=== PATIENT | female | born 1950 | race Caucasian/White ===

== ENCOUNTER 2017-03-23 12:00 | Emergency (ER) | payer BC ==
[2017-03-23 14:17] VITALS: BP 143/62
--- NOTE | 2017-03-23 14:30 | UC ---
Throat Pain/Nasal Ryan HPI - HPI Summary HPI Summary: Per sales training manager "Pt returns from 03/18/17 visit. Pt had negative strep test. Roof and lining of mouth have red spots that have worsened, now blisters under tongue and inside lips are red. Pt queries if sx are due to thrush." Denies sores or rash on hands or feet. no swollen glands, no fevers. - History of Current Complaint Chief Complaint: UCGI Stated Complaint: SORE THROAT/ORAL COMPLAINT Time Seen by Provider: 03/23/17 14:10 - Allergies/Home Medications Allergies/Adverse Reactions: Allergies Allergy/AdvReac Type Severity Reaction Status Date / Time No Known Allergies Allergy Verified 03/23/17 14:17 PMH/Surg Hx/FS Hx/Imm Hx Previously Healthy: Yes - Surgical History Surgical History: Yes Surgery Procedure, Year, and Place: PARA-THYROID. APPY. HYSTERECTOMY - Family History Known Family History: Positive: Hypertension - Social History Alcohol Use: Occasionally Substance Use Type: None Smoking Status (MU): Never Smoked Tobacco Review of Systems Constitutional: Negative Skin: Negative Eyes: Negative ENT: Other - spots on roof of mouth and lesions under tongue Respiratory: Negative Cardiovascular: Negative Gastrointestinal: Negative Genitourinary: Negative Motor: Negative Neurovascular: Negative Musculoskeletal: Negative Neurological: Negative Psychological: Negative Is Patient Immunocompromised?: No All Other Systems Reviewed And Are Negative: Yes Physical Exam Triage Information Reviewed: Yes Appearance: Well-Appearing, No Pain Distress, Well-Nourished Vital Signs: Initial Vital Signs Temp 97.3 F 03/23/17 14:08 Pulse 64 03/23/17 14:08 Resp 18 03/23/17 14:08 BP 143/62 03/23/17 14:08 Vital Signs Reviewed: Yes Eye Exam: Normal ENT: Positive: Pharynx normal, TMs normal, Other - mucosal colored 2-3 mm elevated lesions. no bleeding. no ulcerations. Negative: Pharyngeal erythema, Nasal congestion, Nasal drainage, Tonsillar swelling, Tonsillar exudate Dental Exam: Normal Neck exam: Normal Neck: Positive: Supple, Nontender, No Lymphadenopathy Respiratory Exam: Normal Respiratory: Positive: Lungs clear, Normal breath sounds, No respiratory distress, No accessory muscle use Cardiovascular Exam: Normal Cardiovascular: Positive: RRR, No Murmur, Pulses Normal Abdomen Description: Positive: Nontender, Soft Neurological Exam: Normal Psychological Exam: Normal Skin Exam: Normal Throat Pain/Nasal Course/Dx - Course Assessment/Plan: She is very agreeable with this paln - Differential Dx/Diagnosis Differential Diagnosis/HQI/PQRI: Laryngitis, Other - Ulcers Provider Diagnoses: Aphthous ulcers Discharge - Discharge Plan Condition: Stable Disposition: HOME Patient Education Materials: Canker Sores (ED) Referrals: Lori Estrella MD [Primary Care Provider] - 4 Days Additional Instructions: This is a self limiting process and should improve over the coming days. You can take tylenol for any discomfort.
== END 2017-03-23 14:47 | disposition home or self-care (01) ==
LOC: UCCORT 12:00
DX: K12.0 Recurrent oral aphthae (principal); Z90.710 Acquired absence of both cervix and uterus; Z90.89 Acquired absence of other organs
CPT/HCPCS: 99211; G0463

== ENCOUNTER 2018-11-03 10:37 | Emergency (ER) | payer MEDICARE, BC ==
[2018-11-03 11:02] VITALS: BP 127/55
--- NOTE | 2018-11-03 11:14 | ED ---
Throat Pain/Nasal Congestion - HPI Summary HPI Summary: 68 yr old female with the complaint of sore throat. Onset of sore throat two days ago and she feels tired. No fever. No runny nose or coughing. No drooling or change in voice. No other complaints. - History of Current Complaint Chief Complaint: UCRespiratory Time Seen by Provider: 11/03/18 11:05 - Allergies/Home Medications Allergies/Adverse Reactions: Allergies Allergy/AdvReac Type Severity Reaction Status Date / Time No Known Allergies Allergy Verified 11/03/18 10:54 Home Medications: Home Medications Atorvastatin* [Lipitor*] 10 mg PO DAILY 11/03/18 [History Confirmed 11/03/18] PMH/Surg Hx/FS Hx/Imm Hx - Surgical History Surgery Procedure, Year, and Place: PARA-THYROID. APPY. HYSTERECTOMY. BENIGN SALVALARY GLAND TUMOR REMOVED Infectious Disease History: Yes Infectious Disease History: Reports: Hx Shingles Denies: Traveled Outside the [place] in Last 30 Days - Family History Known Family History: Positive: Hypertension - Social History Occupation: Retired Lives: With Family Alcohol Use: Occasionally Substance Use Type: Reports: None Smoking Status (MU): Never Smoked Tobacco Review of Systems Constitutional: Negative Positive: Sore Throat All Other Systems Reviewed And Are Negative: Yes Physical Exam Triage Information Reviewed: Yes Vital Signs On Initial Exam: Initial Vitals Temp Pulse Resp BP Pulse Ox 97.5 F 75 16 127/55 97 11/03/18 10:57 11/03/18 10:57 11/03/18 10:57 11/03/18 10:57 11/03/18 10:57 Vital Signs Reviewed: Yes Appearance: Positive: Well-Appearing, No Pain Distress Skin: Positive: Warm, Skin Color Reflects Adequate Perfusion Head/Face: Positive: Normal Head/Face Inspection Eyes: Positive: EOMI, SARITHA ENT: Positive: Pharyngeal erythema, TMs normal. Negative: Nasal congestion, Nasal drainage Neck: Positive: Nontender, No Lymphadenopathy, Other: - scar from parathyroid surgery Respiratory/Lung Sounds: Positive: Clear to Auscultation, Breath Sounds Present Cardiovascular: Positive: RRR. Negative: Murmur Abdomen Description: Negative: Distended Musculoskeletal: Positive: Strength/ROM Intact Neurological: Positive: Sensory/Motor Intact, Alert, Oriented to Person Place, Time, CN Intact II-III, Normal Gait, Speech Normal Psychiatric: Positive: Normal Diagnostics - Vital Signs Vital Signs Temp Pulse Resp BP Pulse Ox 11/03/18 10:57 97.5 F 75 16 127/55 97 - Laboratory Lab Statement: Any lab studies that have been ordered have been reviewed, and results considered in the medical decision making process. EENT Course/Dx - Course Course Of Treatment: 68 yr old with pharyngitis. Strep positive. Rx amox - Diagnoses Provider Diagnoses: Strep pharyngitis Discharge - Sign-Out/Discharge Documenting (check all that apply): Patient Departure All imaging exams completed and their final reports reviewed: No Studies - Discharge Plan Condition: Good Disposition: HOME Prescriptions: Amoxicillin PO (*) [Amoxicillin 500 MG CAP*] 500 mg PO TID #30 cap Patient Education Materials: Strep Throat (ED) Referrals: Lori Estrella MD [Primary Care Provider] - - Billing Disposition and Condition Condition: GOOD Disposition: Home
== END 2018-11-03 11:22 | disposition home or self-care (01) ==
LOC: UCCORT 10:37
DX: J02.0 Streptococcal pharyngitis (principal); B95.0 Streptococcus, group A, as the cause of diseases classified elsewhere
CPT/HCPCS: 87651; 99212; G0463

== ENCOUNTER 2019-02-28 12:18 | Emergency (ER) | payer MEDICARE, BC ==
--- OUTSIDE RECORDS SUMMARY | 2019-02-28 12:28 | XMS REPORT | Continuity of Care Document ---
:1950 External Reference #:[id number] Author Name Lori Estrella MD Address [address] [place] [id number] Care Team Providers Name Role Phone Lori Estrella MD - Family Care Team Information Houseperson [phone] Medicine Wali Weeks MD Care Team Information Houseperson [phone] Connor Medina MD Care Team Information Houseperson [phone] Lane Daniel - Gastroenterology Care Team Information Houseperson Osmany Diaz MD - Otolaryngology Care Team Information Houseperson [facility] X-Ray Care Team Information Houseperson [phone] - Urology Care Team Information Houseperson [phone] Problems Active Problems Provider Date Hormone replacement therapy Lori Estrella MD Onset: 07/09/2012 Benign neoplasm of parathyroid gland Lori Estrella MD Onset: 11/27/2009 Hyperparathyroidism Lori Estrella MD Onset: 11/27/2009 Non-toxic multinodular goiter Lori Estrella MD Onset: 05/29/2009 Osteoporosis Lori Estrella MD Onset: 06/27/2008 Pain in female genitalia on intercourse Lori Estrella MD Onset: 2008 Vitamin D deficiency Lori Estrella MD Onset: 05/04/2007 Mixed hyperlipidemia Lori Estrella MD Onset: 03/13/2006 Osteochondropathy Lori Estrella MD Onset: 03/13/2006 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 Social History Type Date Description Comments Sex Unknown ETOH Use Occasionally consumes alcohol Tobacco Use Start: Unknown Patient has never smoked Smoking Status Reviewed: 08/19/18 Patient has never smoked Exercise Exercises regularly Walks 5 times a week - Type/Frequency 07/12/2013 counselled 150min per week , , 3miles, 45 min.; 08/03/14 counselled 150min per week 10k steps per day Allergies, Adverse Reactions, Alerts Description No Known Drug Allergies Medications Active Medications SIG Qnty Indications Ordering Provider Date Naproxen 1 by mouth 60tabs M70.62 Lori Estrella, 01/29/2019 500mg Tablets twice a day MD with food M70.61 Atorvastatin Calcium 1 by mouth every 100tabs E78.2 Lori Estrella MD 08/19/2018 10mg day Tablets History Medications Amoxicillin Three Times Daily 30caps Unknown 11/03/2018 - 01/28/2019 500mg Capsules Immunizations CPT Code Status Date Vaccine Reaction Lot # [id number] Given 01/26/2018 Fluzone Highdose Age 65 And Over Preservative & Antibiotic Free 02935 Given 08/11/2017 Zoster (Zostavax) [place] 17210 Given 08/11/2017 Pneumococcal 23 Immunization [id number] Adult Or Immunosuppressed Patient 60229 Given 08/11/2017 Tdap (Adacel) Ages 7 And [place] drugs Above Only 44061 Given 08/07/2016 Prevnar 13 Pneumococal Im inj completed, Pt [id number] Conjugate Vaccine tolerated well Q2035 Given 02/13/2016 Afluria Imunization [facility] 80257 Given 02/25/2013 Afluria Or Fluvirin Flu Vac Intramuscular 07832 Given 04/12/2008 Afluria Or Fluvirin Flu Vac Intramuscular 35958 Given 04/12/2008 Tdap (Adacel) Ages 7 And Above Only 50159 Given 04/12/2003 Afluria Or Fluvirin Flu Vac Intramuscular 48641 Given 05/31/1999 Tetanus And Diptheria Toxoids For Adult Use-preservative free 48034 Refused 01/29/2019 Shingrix (Shingles) Zoster Vaccine HZV, Recombinant, Subunit, Adj Q2039 Refused 01/29/2019 Flu Vaccine NOS 78467 Refused 08/11/2017 Zoster (Zostavax) insurance will not cover Q2039 Refused 08/11/2017 Flu Vaccine NOS 98578 Refused 08/07/2015 Zoster (Zostavax) 27275 Refused 08/03/2014 Influenza Virus Vaccine,Quadrivalent,Split,Preser v Free, 0.5mL,[place] [address] Refused 08/03/2014 Zoster (Zostavax) Vital Signs Date Vital Result Comment 01/29/2019 2:46pm Weight 151.00 lb Heart Rate 68 /min BP Systolic 112 mmHg BP Diastolic 70 mmHg Respiratory Rate 18 /min Height 63 inches 5'3" O2 % BldC Oximetry 98 % ra BMI (Body Mass Index) 26.7 kg/m2 10/21/2018 10:49am Weight 149.00 lb Heart Rate 68 /min BP Systolic 118 mmHg BP Diastolic 76 mmHg Respiratory Rate 16 /min Height 63 inches 5'3" BMI (Body Mass Index) 26.4 kg/m2 Results Test Date Facility Test Result H/L Range Note Comprehensive Met Panel[facility] 09/21/2018 [facility] Sodium 143 mmol/L 135- 146 1, 2 Potassium 3.9 mmol/L 3.5-5.2 Chloride# 109 mmol/L 97-110 3 Carbon Dioxide 22 mmol/L Low 24-34 Calcium 9.1 mg/dL 8.5-10.5 4 Glucose 98 mg/dL 70-105 BUN 18 mg/dL 6-26 Creatinine 0.7 mg/dL 0.5-1.4 Total Protein 6.3 g/dL 6.0-8.0 Albumin 4.2 g/dL 3.6-4.9 Globulin 2.1 g/dL 2.0-3.5 A/G Ratio 2.0 Ratio 1.0-2.2 Total Bilirubin 0.6 mg/dL 0.1-1.3 Alkaline Phosphatase 53 U/L 24-140 Alt 14 U/L 3-42 Ast 15 U/L 8-42 Anion Gap 12 mmol/L 5-15 5 Female Egfr 84 >60 6 Male Egfr 95 >60 7 Laboratory test finding 09/21/2018 [facility] CPK 69 U/L 12-199 Lipid 09/21/2018 [facility] Cholesterol 180 mg/dL 50-199 Triglycerides 82 mg/dL 30-200 HDL 63 mg/dL 35-85 8 Chol/ HDL Ratio 2.9 ratio Low 3.7-5.6 VLDL 16 mg/dL 2-29 LDL (Calc) 101 mg/dL High 20-99 9 Lipid 08/18/2018 [facility] Cholesterol 265 mg/dL High 50-199 10 Triglycerides 71 mg/dL 30-200 HDL 65 mg/dL 35-85 11 Chol/ HDL Ratio 4.1 ratio 3.7-5.6 VLDL 14 mg/dL 2-29 LDL (Calc) 186 mg/dL High 20-99 12 Comprehensive Metabolic (CMP) 08/18/2018 [facility] Sodium 141 mmol/L 135- 146 13 Potassium 4.4 mmol/L 3.5-5.2 Chloride# 107 mmol/L 97-110 14 Carbon Dioxide 23 mmol/L Low 24-34 Glucose 90 mg/dL 70-105 BUN 21 mg/dL 6-26 Creatinine 0.7 mg/dL 0.5-1.4 Calcium 9.7 mg/dL 8.5-10.2 Total Protein 6.5 g/dL 6.0-8.0 Albumin 4.3 g/dL 3.6-4.9 Globulin 2.2 g/dL 2.0-3.5 A/G Ratio 2.0 Ratio 1.0-2.2 Total Bilirubin 0.7 mg/dL 0.1-1.3 Alkaline Phosphatase 51 U/L 24-140 Alt 13 U/L 3-42 Ast 17 U/L 8-42 Anion Gap 11 mmol/L 5-15 15 Malia Egfr >60 >60 16 Non Malia Egfr >60 >60 17 CBC With Auto Diff 08/18/2018 [facility] WBC 4.3 K/uL 4.1-11.0 RBC 4.78 M/uL 4.00-5.40 Hemoglobin 14.3 gm/dL 12.0-16.0 Hematocrit 42.1 % 36.0-47.0 MCV 88.1 fL 80.0-97.0 MCH 29.9 pg 27.0-32.0 MCHC 33.9 g/dL 32.0-36.0 RDW 14.0 % 11.5-14.5 PLT Count 174 K/ul 140-400 MPV 10.5 FL 7.1-10.7 Neutrophil 63.5 % 35.0-75.0 Lymphocyte 24.1 % 16.0-52.0 Monocyte 6.8 % 2.0-10.0 Eosinophil 4.2 % 0.0-5.0 Basophil 1.4 % 0.0-4.0 Abs Neutrophils 2.7 K/uL 2.1-8.0 Abs Lymphocytes 1.0 K/uL 0.8-5.5 Abs Monocytes 0.3 K/uL 0.1-1.0 Abs Eosinophils 0.2 K/uL 0.0-0.5 Abs Basophils 0.1 K/uL 0.0-0.3 Laboratory test finding 08/18/2018 [facility] Vitamin D 25 Hydroxy 40 ng/mL 30-100 18 TSH 1.20 uIU/mL 0.35-4.94 Laboratory test finding 08/18/2018 [facility] PTH, Intact 49.1 pg/mL (18.5- 88.0) 19 1 6 weeks ov fu new meds 2 Updated reference range on new analyzer 3 Updated reference range on new analyzer 4 Updated reference range 09-09-2018 5 Updated Reference Range 6 Concerning GFR Guidelines for Americans: Normal function or mild renal disease, if clinically at risk: >/= 60 mL/min Moderately decreased: 30-59 Severely decreased: 15-29 Renal failure: <15 There is reduced accuracy above 60ml/min/1.73 m squared, but the numeric value may be clinically useful in the near 60 range 7 Concerning GFR Guidelines: Normal function or mild renal disease, if clinically at risk: >/= 60 mL/min Moderately decreased: 30-59 Severely decreased: 15-29 Renal failure: <15 There is reduced accuracy above 60ml/min/1.73 m squared, but the numeric value may be clinically useful in the near 60 range Glomerular Filtration Rate (GFR) is estimated based on the CKD-EPI equation, which assumes a steady state for creatinine as recommended by the National Kidney Disease Education Program in conjunction with the National Institutes of Health and the National Kidney Foundation. Clinical conditions in which it may be necessary to measure GFR by using clearance methods include extremes of age and body size, severe malnutrition or obesity, diseases of skeletal muscle, paraplegia or quadriplegia, vegetarian diet, rapidly changing kidney function, and calculation of the dose of potentially toxic drugs that are excreted by the kidneys. 8 Per NCEP ATP III Guidelines: Results lower than 40 mg/dL are suggestive of increased risk for coronary artery disease. Results > or = to 60 mg/dL are considered a negative risk factor. 9 Per NCEP ATP III Guidelines: Normal Population <130 Patients with medical conditions: CHD/DM Optimal: <100 Borderline high: 130-159 High: 160-189 Very high: >189 10 before visit 08/19/18 11 Per NCEP ATP III Guidelines: Results lower than 40 mg/dL are suggestive of increased risk for coronary artery disease. Results > or = to 60 mg/dL are considered a negative risk factor. 12 Per NCEP ATP III Guidelines: Normal Population <130 Patients with medical conditions: CHD/DM Optimal: <100 Borderline high: 130-159 High: 160-189 Very high: >189 13 Updated reference range on new analyzer 14 Updated reference range on new analyzer 15 Updated Reference Range 16 Concerning GFR Guidelines for Americans: Normal function or mild renal disease, if clinically at risk: >/= 60 mL/min Moderately decreased: 30-59 Severely decreased: 15-29 Renal failure: <15 17 Concerning GFR Guidelines: Normal function or mild renal disease, if clinically at risk: >/= 60 mL/min Moderately decreased: 30-59 Severely decreased: 15-29 Renal failure: <15 Glomerular Filtration Rate (GFR) is estimated based on the MDRD equation, which assumes a steady state for creatinine as recommended by the National Kidney Disease Education Program in conjunction with the National Institutes of Health and the National Kidney Foundation. Clinical conditions in which it may be necessary to measure GFR by using clearance methods include extremes of age and body size, severe malnutrition or obesity, diseases of skeletal muscle, paraplegia or quadriplegia, vegetarian diet, rapidly changing kidney function, and calculation of the dose of potentially toxic drugs that are excreted by the kidneys. 18 Clinical Guidelines for recommended serum 25(OH)Vitamin D Deficient at less than 20 ng/mL Insufficient at 20 to <30 ng/mL Sufficient at 30-100 ng/mL Toxicity at greater than 100 ng/mL 19 New Assay and Reference Range in use 12/29/17. Unless otherwise specified, testing performed by [facility] [address] [place] [address] Procedures Date Code Description Status 08/17/2018 [id number] Mammogram Completed 09/25/2017 [id number] Colonoscopy Completed 08/04/2017 [id number] Mammogram Completed 08/07/2016 [id number] Bone Mineral Density Test Completed 08/02/2014 [id number] Bone Mineral Density Test Completed 08/02/2014 [id number] Mammogram Completed Medical Devices Description No Information Available Encounters Type Date Location Provider Dx Diagnosis Office Visit 10/21/2018 10:30a [facility] Lori Estrella MD R07.81 Pleurodynia R10.812 LEFT upper quadrant abdominal tenderness K42.9 Umbilical hernia without obstruction or gangrene N20.0 Calculus of kidney N28.1 Cyst of kidney, acquired M67.442 Ganglion, LEFT hand Z68.26 Body mass index (BMI) 26.0-26.9, adult Office Visit 09/28/2018 1:15p [facility] Lori Estrella MD E78.2 Mixed hyperlipidemia R07.81 Pleurodynia R10.812 LEFT upper quadrant abdominal tenderness Z68.26 Body mass index (BMI) 26.0-26.9, adult Office Visit 08/19/2018 11:00a [facility] Lori Estrella MD Z00.01 Encounter for general adult medical exam w abnormal findings 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, unspecified hand D35.1 Benign neoplasm of parathyroid gland E55.9 Vitamin D deficiency, unspecified M81.0 Age-related osteoporosis w/o current pathological fracture E04.2 Nontoxic multinodular goiter Z12.31 Encntr screen mammogram for malignant neoplasm of breast Z12.11 Encounter for screening for malignant neoplasm of colon E78.2 Mixed hyperlipidemia R07.81 Pleurodynia Z13.31 Encounter for screening for depression Z68.26 Body mass index (BMI) 26.0-26.9, adult Assessments Date Code Description Provider 01/29/2019 M70.62 Trochanteric bursitis, LEFT hip Lori Estrella MD 01/29/2019 M70.61 Trochanteric bursitis, RIGHT hip Lori Estrella MD 01/29/2019 Z68.26 Body mass index (BMI) 26.0-26.9, adult Lori Estrella MD 10/21/2018 R07.81 Pleurodynia Lori Estrella MD 10/21/2018 R10.812 LEFT upper quadrant abdominal tenderness Lori Estrella MD 10/21/2018 K42.9 Umbilical hernia without obstruction or Lori Estrella MD gangrene 10/21/2018 N20.0 Calculus of kidney Lori Estrella MD 10/21/2018 N28.1 Cyst of kidney, acquired Lori Estrella MD 10/21/2018 M67.442 Ganglion, LEFT hand Lori Estrella MD 10/21/2018 Z68.26 Body mass index (BMI) 26.0-26.9, adult Lori Estrella MD 09/28/2018 E78.2 Mixed hyperlipidemia Lori Estrella MD 09/28/2018 R07.81 Pleurodynia Lori Estrella MD 09/28/2018 R10.812 LEFT upper quadrant abdominal tenderness Lori Estrella MD 09/28/2018 Z68.26 Body mass index (BMI) 26.0-26.9, adult Lori Estrella MD 09/21/2018 E78.2 Mixed hyperlipidemia Lori Estrella MD 09/21/2018 E78.2 Mixed hyperlipidemia Schedule, Laboratory 09/21/2018 E78.2 Mixed hyperlipidemia [facility] 08/19/2018 Z00.01 Encounter for general adult medical Lori Estrella MD examination with abnorma 08/19/2018 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 Lroi Estrella MD 08/19/2018 M19.049 Primary osteoarthritis, unspecified hand Lori Estrella MD 08/19/2018 D35.1 Benign neoplasm of parathyroid gland Lori Estrella MD 08/19/2018 E55.9 Vitamin D deficiency, unspecified Lori Estrella MD 08/19/2018 M81.0 Age-related osteoporosis without current Lori Estrella MD pathological fractu 08/19/2018 E04.2 Nontoxic multinodular goiter Lori Estrella MD 08/19/2018 Z12.31 Encounter for screening mammogram for Lori Estrella MD malignant neoplasm of 08/19/2018 Z12.11 Encounter for screening for malignant Lori Estrella MD neoplasm of colon 08/19/2018 E78.2 Mixed hyperlipidemia Lori Estrella MD 08/19/2018 R07.81 Pleurodynia Lori Estrella MD 08/19/2018 Z13.31 Encounter for screening for depression Lori Estrella MD 08/19/2018 Z68.26 Body mass index (BMI) 26.0-26.9, adult Lori Estrella MD 08/18/2018 M81.0 Age-related osteoporosis without current Lori Estrella MD pathological fracture 08/18/2018 M81.0 Age-related osteoporosis w/o current Schedule, Laboratory pathological fracture 08/18/2018 E78.2 Mixed hyperlipidemia Lori Estrella MD 08/18/2018 E78.2 Mixed hyperlipidemia Schedule, Laboratory 08/18/2018 E55.9 Vitamin D deficiency, unspecified Lori Estrella MD 08/18/2018 E55.9 Vitamin D deficiency, unspecified Schedule, Laboratory 08/18/2018 E78.2 Mixed hyperlipidemia [facility] 08/18/2018 E55.9 Vitamin D deficiency, unspecified [facility] 08/18/2018 M81.0 Age-related osteoporosis w/o current [facility] pathological fracture Plan of Treatment Future Appointment(s):03/30/2019 8:10 am - Schedule, Laboratory at [facility]2018 1:15 pm - Lori Estrella MD at [facility]01/29/2019 - Lori Estrella, MDM70.62 Trochanteric bursitis, LEFT hipNew Medication:Naproxen 500 mg - 1 by mouth twice a day with foodComments:pain on left lateral hip suggests greater trochanteric bursitis , radiating to the quad ice/gel packcold therapy 15min 3- 4 times dailynaproxen as noted, take with food, watch for gi upset, for at least 2 weeks, ov or call if not better.stretching exercisesknee to shoulder, hold 15sec, rest 15 sec, 10reps, 3 times dailywall lean hold 10 sec, rest 10 sec , 3 times daily then ice. no signs of impaired venous or arterial circulation at this time. muscles are not sore so suspect it's not due to statin therapy avoid activities that cause pain call if develops worse sxs, swelling, etc. call me for PT ifnot better in 2 weeksconsider steroid injections to both hips, this works really well an dcall if wants to do thisM70.61 Trochanteric bursitis , RIGHT hipNew Medication:Naproxen 500 mg - 1 by mouth twice a day with foodComments:as above, do both sidesFollow up:Followup:.Z68.26 Body mass index ( BMI) 26.0-26.9, adultComments:Recommend reduced calorie healthy diet and regular exercise to help with weight loss. Functional Status Description No Information Available Mental Status Description No Information Available Referrals Refer to Reason for Referral Status Appt Date Bernard Yuen DR radiologist reports on ct abd that the kidney Closed has parapelvic cysts of uncertain etiology. please eval. Note: pt with ho parotid tumor, parathyroid tumor, so I"m being mindful of unusual cancer risks. late morning is best after 1030 or 11 or late afternoon / order faxed and pt nofied of date and time and mailed to pt 10/22 [facility]/ [address] [address] [phone]
--- OUTSIDE RECORDS SUMMARY | 2019-02-28 12:28 | XMS REPORT | Continuity of Care Document ---
:1950 External Reference #:[id number] Author Name Lori Estrella MD Address [address] [place] [id number] Care Team Providers Name Role Phone Lori Estrella MD - Family Care Team Information Timing Inspector [phone] Medicine Wali Weeks MD Care Team Information Timing Inspector [phone] Connor Medina MD Care Team Information Timing Inspector [phone] Lane Daniel - Gastroenterology Care Team Information Timing Inspector [phone] Osmany Diaz MD - Otolaryngology Care Team Information Timing Inspector [phone] [facility] X-Ray Care Team Information Timing Inspector [phone] - Urology Care Team Information Timing Inspector [phone] Problems Active Problems Provider Date Hormone replacement [...] twice a day MD with food M70.61 History Medications Amoxicillin Three Times Daily 30caps Unknown 11/03/2018 - 01/28/2019 500mg Capsules Immunizations CPT Code Status Date Vaccine Reaction Lot # [id number] Given 01/26/2018 Fluzone Highdose Age 65 And Over Preservative & Antibiotic Free 96667 Given 08/11/2017 Zoster (Zostavax) [place] [address]4550 Given 08/11/2017 Pneumococcal 23 Immunization [id number] Adult Or Immunosuppressed Patient 54172 Given 08/11/2017 Tdap (Adacel) Ages 7 And [place] drugs Above Only 41308 Given 08/07/2016 Prevnar 13 Pneumococal Im inj completed, Pt [id number] Conjugate Vaccine tolerated well Q2035 Given 02/13/2016 Afluria Imunization [facility] 99166 Given 02/25/2013 Afluria Or Fluvirin Flu Vac Intramuscular 57426 Given 04/12/2008 Afluria Or Fluvirin Flu Vac Intramuscular 99270 Given 04/12/2008 Tdap (Adacel) Ages 7 And Above Only 39689 Given 04/12/2003 Afluria Or Fluvirin Flu Vac Intramuscular 66560 Given 05/31/1999 Tetanus And Diptheria Toxoid 7 Years And Older Preserv Free 13328 Refused 01/29/2019 Shingrix (Shingles) Zoster Vaccine HZV, Recombinant, Subunit, Adj Q2039 Refused 01/29/2019 Flu Vaccine NOS 45040 Refused 08/11/2017 Zoster (Zostavax) insurance will not cover Q2039 Refused 08/11/2017 Flu Vaccine NOS 51700 Refused 08/07/2015 Zoster (Zostavax) 38327 Refused 08/03/2014 Influenza Virus Vaccine,Quadrivalent,Split,Preser v Free, 0.5mL,Im 06151 Refused 08/03/2014 Zoster (Zostavax) Vital Signs Date Vital Result Comment 02/24/2019 11:49am Weight 150.00 lb Heart Rate 68 /min BP Systolic 120 mmHg BP Diastolic 64 mmHg Respiratory Rate 16 /min Height 63 inches 5'3" BMI (Body Mass Index) 26.6 kg/m2 01/29/2019 2:46pm Weight 151.00 lb Heart Rate 68 /min BP Systolic 112 mmHg BP Diastolic 70 mmHg Respiratory Rate 18 /min Height 63 inches 5'3" O2 % BldC Oximetry 98 % ra BMI (Body Mass Index) 26.7 kg/m2 Results Test Date Facility Test Result [...] 95 >60 7 Laboratory test finding 09/21/2018 [facility] 69 U/L 12-199 Lipid 09/21/2018 [facility] Cholesterol 180 mg/dL 50-199 Triglycerides 82 mg/dL 30-200 HDL 63 mg/dL 35-85 8 Chol/ HDL Ratio 2.9 ratio Low 3.7-5.6 VLDL 16 mg/dL 2-29 LDL (Calc) 101 mg/dL High 20-99 9 1 6 weeks ov fu new meds [...] high: 130-159 High: 160-189 Very high: >189 Procedures Date Code Description Status 02/24/2019 82081 Inject/Drain Joint/Bursa Major W/Out Ultrasound Completed Guidance 08/17/2018 [id number] Mammogram Completed 09/25/2017 [id number] Colonoscopy Completed 08/04/2017 [id number] Mammogram Completed 08/07/2016 [id number] Bone Mineral Density Test Completed 08/02/2014 006057925 Bone Mineral Density Test Completed 08/02/2014 [id number] Mammogram Completed Medical Devices Description No Information Available Encounters Type Date Location Provider Dx Diagnosis Office Visit 01/29/2019 [facility] Lori Estrella, M70.62 Trochanteric bursitis , 2:30p LEFT hip M70.61 Trochanteric bursitis, RIGHT hip Z68.26 Body mass index (BMI) 26.0-26.9, adult Office Visit 10/21/2018 10:30a [facility] Lori Estrella MD R07.81 Pleurodynia R10.812 LEFT upper quadrant abdominal tenderness K42.9 Umbilical hernia without obstruction or gangrene N20.0 Calculus of kidney N28.1 Cyst of kidney, acquired M67.442 Ganglion, LEFT hand Z68.26 Body mass index (BMI) 26.0-26.9, adult Office Visit 09/28/2018 1:15p [facility] Lori Estrella MD E78.2 Mixed hyperlipidemia R07.81 Pleurodynia R10.812 LEFT upper quadrant abdominal tenderness Z68.26 Body mass index (BMI) 26.0-26.9, adult Assessments Date Code Description Provider 02/24/2019 M70.62 Trochanteric bursitis, LEFT hip Lori Estrella MD 02/24/2019 M70.61 Trochanteric bursitis, RIGHT hip Lori Estrella MD 02/24/2019 M79.10 Myalgia, unspecified site Lori Estrella MD 02/24/2019 M76.32 Iliotibial band syndrome, LEFT leg Lori Estrella MD 02/24/2019 E78.2 Mixed hyperlipidemia Lori Estrella MD 02/24/2019 Z68.26 Body mass index (BMI) 26.0-26.9, adult Lori Estrella MD 01/29/2019 M70.62 Trochanteric bursitis, LEFT hip Lori Estrella MD 01/29/2019 M70.61 Trochanteric bursitis, RIGHT hip Lori Estrella MD 01/29/2019 Z68.26 Body mass index (BMI) 26.0-26.9, adult Lori Estrella MD 10/21/2018 R07.81 Pleurodynia Lori Estrelal MD 10/21/2018 R10.812 LEFT upper quadrant abdominal [...] hyperlipidemia Schedule, Laboratory 09/21/2018 E78.2 Mixed hyperlipidemia [facility] Lab Plan of Treatment Future Appointment(s):03/30/2019 8:10 am - Schedule, Laboratory at [facility]2018 1:15 pm - Lori Estrella MD at [facility]02/24/2019 - Lori Estrella, MDM70.62 Trochanteric bursitis, LEFT hipComments:greater trochanteric bursitiswe injected your lateral hip with depomedrol steroid 20mg and 2% lidocaine today 1.5 ccthe numbness of the lidocaine will wear off over the next few hours, then the pain will return. It will take a few days for the steroid to help. Please use ice/naproxen as needed for pain. Please call for concerns such as severe pain, which could be steroid flare, or other concerns suchas spreading redness, fever, other concerns.Immunizations/Injections:Depo Medrol 20 MGM70.61 Trochanteric bursitis, RIGHT hipComments:this side feels much betterFollow up:Followup:.M79.10 Myalgia, unspecified siteComments:myalgias, may be due to atorvastatin, med is oxnhfxE58.32 Iliotibial band syndrome, LEFT legComments:lateral hip right through to th eknee pain, areas of more tenderness , suggests iliotibial band. Suggested lateral hip stretching exercises, try doing them 2-3 times daily and after walking. see handout. may icetry foam rolling on painful points consider massage therapyFollow up:Followup:.E78.2 Mixed hyperlipidemiaComments:off atorvastatin due to muscle achesonce these recover, let me know , consider rosuvastatin nextZ68.26 Body mass index (BMI) 26.0-26.9, adultComments:Recommend reduced calorie healthy diet and [...] mailed to pt 10/22 ms Urology [facility]/ [address] [address] [phone]
[2019-02-28 12:50] VITALS: BP 126/100
--- NOTE | 2019-02-28 13:21 | UC ---
Throat Pain/Nasal Ryan HPI - HPI Summary HPI Summary: Pt c/o sore throat with left side more painful than right X 4 days Pt had strep in October 2018. Pt is concerned that ST may worsen and she is going [place]. - History of Current Complaint Chief Complaint: UCRespiratory Stated Complaint: SORE THROAT Time Seen by Provider: 02/28/19 13:12 Hx Obtained From: Patient ?: No Onset/Duration: Sudden Onset, Lasting Days, Still Present Severity: Moderate Pain Intensity: 0 Cough: None Associated Signs & Symptoms: Positive: Dysphagia - Epiglottits Risk Factors Epiglottis Risk Factors: Negative - Allergies/Home Medications Allergies/Adverse Reactions: Allergies Allergy/AdvReac Type Severity Reaction Status Date / Time No Known Allergies Allergy Verified 02/28/19 12:45 Home Medications: Home Medications Naproxen [Naproxen 500 mg tab] 500 mg PO BID 02/28/19 [History Confirmed ] PMH/Surg Hx/FS Hx/Imm Hx Previously Healthy: Yes - Surgical History Surgical History: Yes Surgery Procedure, Year, and Place: PARA-THYROID. APPY. HYSTERECTOMY. BENIGN SALVALARY GLAND TUMOR REMOVED - Family History Known Family History: Positive: Hypertension - Social History Occupation: Retired Lives: With Family Alcohol Use: Occasionally Substance Use Type: None Smoking Status (MU): Never Smoked Tobacco Have You Smoked in the Last Year: No - Immunization History Vaccination Up to Date: Yes Review of Systems All Other Systems Reviewed And Are Negative: Yes Constitutional: Positive: Negative Skin: Positive: Negative Eyes: Positive: Negative ENT: Positive: Sore Throat Respiratory: Positive: Negative Cardiovascular: Positive: Negative Gastrointestinal: Positive: Negative Genitourinary: Positive: Negative Motor: Positive: Negative Neurovascular: Positive: Negative Musculoskeletal: Positive: Negative Neurological: Positive: Negative Psychological: Positive: Negative Is Patient Immunocompromised?: No Physical Exam Triage Information Reviewed: Yes Appearance: Well-Appearing Vital Signs: Initial Vital Signs Temp 98.3 F 02/28/19 12:46 Pulse 64 02/28/19 12:46 Resp 16 02/28/19 12:46 BP 126/100 02/28/19 12:46 Pulse Ox 100 02/28/19 12:46 Vital Signs Reviewed: Yes Eye Exam: Normal ENT: Positive: Tonsillar exudate - left side, exudate mild swelling to left tonsil Dental Exam: Normal Neck: Positive: Enlarged Nodes @ - left submaxillary Respiratory Exam: Normal Cardiovascular Exam: Normal Musculoskeletal Exam: Normal Neurological Exam: Normal Psychological Exam: Normal Skin Exam: Normal Throat Pain/Nasal Course/Dx - Differential Dx/Diagnosis Differential Diagnosis/HQI/PQRI: Peritonsillar Abscess, Pharyngitis, Tonsillitis Provider Diagnosis: Tonsillitis with exudate Discharge ED - Sign-Out/Discharge Documenting (check all that apply): Patient Departure All imaging exams completed and their final reports reviewed: No Studies - Discharge Plan Condition: Stable Disposition: HOME Prescriptions: Penicillin VK 500 MG TAB(NF) [Penicillin VK 500 mg Tab] 500 mg PO Q8H #30 tab Patient Education Materials: Tonsillitis (ED) Referrals: Lori Estrella MD [Primary Care Provider] - If Needed - Billing Disposition and Condition Condition: STABLE Disposition: Home
== END 2019-02-28 13:30 | disposition home or self-care (01) ==
LOC: UCCORT 12:18
DX: J03.90 Acute tonsillitis, unspecified (principal)
CPT/HCPCS: 99212; G0463